=== PATIENT | male | born 1990 | race American Indian/Alaskan Native ===

== ENCOUNTER 2021-06-14 06:09 | Emergency (ER) | payer MEDICARE ==
[2021-06-14 07:33] VITALS: BP 114/48
[2021-06-14 10:43] LABS: Alanine Aminotransferase 14 units/L (7-56); Albumin 4.1 g/dL (3.9-5); BUN/Creatinine Ratio 10; Basophils # (Auto) 0.1 K/mm3 (0.0-0.1); Basophils % (Auto) 0.7 % (0.0-1.8); Blood Urea Nitrogen 12 mg/dL (9-20); Calcium 9.2 mg/dL (8.4-10.2); Eosinophils % (Auto) 0.5 % (0.0-4.3); Hematocrit 39.8 % (35.5-45.6); Hemoglobin 13.6 gm/dl (11.8-15.2); Hemolysis Index 8; Lymphocytes % (Auto) 11.4 % (13.4-35.0); Mean Corpuscular HGB Conc 34 % (32-34); Mean Corpuscular Volume 91 fl (84-94); Monocytes # (Auto) 0.6 K/mm3 (0.0-0.8); Monocytes % (Auto) 6.4 % (0.0-7.3); Platelet Count 150 K/mm3 (140-440); Red Cell Distribution Width 13.1 % (13.2-15.2)
--- NOTE | 2021-06-14 11:13 | XRay Report ---
CHEST PA AND LATERAL VIEWS INDICATION: Syncope. COMPARISON: None. FINDINGS: Support devices: None. Heart: Within normal limits. Lungs/Pleura: No acute pulmonary or pleural findings. IMPRESSION: 1. No acute findings. Signer Name: Vignesh Campo MD Signed: 06/14/2021 11:09 AM Workstation Name: [id number]
--- NOTE | 2021-06-14 12:02 | Emergency Department Report ---
ED Syncope HPI - General Chief Complaint: Syncope Stated Complaint: SYNCOPE,WEAKNESS,FLANK PAIN Time Seen by Provider: 06/14/21 11:56 Source: patient Exam Limitations: no limitations - History of Present Illness Initial Comments: Chief complaint: I passed out HPI: This is a healthy 31-year-old male with history of tobacco use tobacco dependence who presents with syncopal episode while walking at work this morning. For the past 2 weeks patient's had symptoms of runny nose lower back pain lightheadedness chills sore throat headache. No known Covid exposure. He denies cough or shortness of breath. Denies chest pain. Denies loss of taste or smell. While walking to work he felt lightheaded. He had mild lower back pain. He had a unwitnessed syncopal episode while walking to work from his home. He started a new job in [employer] 3 weeks ago. He currently is asympto matic. No family history of cardiac disease. He denies recreational drug use. Timing/Prior Episodes: single episode today Precipitating Factors: Positive: lightheadedness, other (Bilateral lower back pain) Context: other (Walking) Loss of Consciousness: brief (seconds) Current Symptoms: back to normal - Related Data Allergies/Adverse Reactions: Allergies No Known Allergies Allergy (Unverified 06/14/21 07:28) ED Review of Systems ROS: Stated complaint: SYNCOPE,WEAKNESS,FLANK PAIN Other details as noted in HPI Comment: All other systems reviewed and negative Constitutional: chills. denies: fever, malaise ENT: congestion (Nasal congestion). denies: throat pain Respiratory: denies: cough, shortness of breath Cardiovascular: denies: chest pain, palpitations Gastrointestinal: denies: abdominal pain Neurological: denies: headache Psychiatric: denies: depression, auditory hallucinations ED Past Medical Hx - Past Medical History Previous Medical History?: No - Surgical History Past Surgical History?: No ED Physical Exam - General Limitations: No Limitations General appearance: alert, in no apparent distress, other (Appears well, brisk ambulation, appears healthy) - Head Head exam: Present: atraumatic, normocephalic - Eye Eye exam: Present: normal appearance - ENT ENT exam: Present: mucous membranes moist - Neck Neck exam: Present: normal inspection, full ROM - Respiratory Respiratory exam: Present: normal lung sounds bilaterally. Absent: respiratory distress, wheezes, rales, rhonchi - Cardiovascular Cardiovascular Exam: Present: regular rate, normal rhythm, normal heart sounds. Absent: systolic murmur, diastolic murmur, rubs, gallop - GI/Abdominal GI/Abdominal exam: Present: soft, normal bowel sounds. Absent: distended, tenderness, guarding, rebound - Rectal Rectal exam: Present: deferred - Extremities Exam Extremities exam: Present: normal inspection - Neurological Exam Neurological exam: Present: alert, oriented X3 - Psychiatric Psychiatric exam: Present: normal affect, normal mood - Skin Skin exam: Present: warm, dry, intact, normal color. Absent: rash ED Course Vital Signs 06/14/21 07:32 Temperature 99.0 F Pulse Rate 91 H Respiratory 18 Rate Blood Pressure 114/48 O2 Sat by Pulse 95 Oximetry ED Medical Decision Making - Lab Data Result diagrams: 06/14/21 09:54 06/14/21 09:54 - EKG Data -: EKG Interpreted by Ma EKG shows normal: sinus rhythm, axis, intervals, QRS complexes, ST-T waves Rate: normal - Radiology Data Radiology results: report reviewed [address] [address] XRay Report Signed Patient: CORRINE BERMAN MR#: [id number] 2009 : 1990 Acct:[id number] Age/Sex: 31 / M ADM Date: 06/14/21 Loc: ED Attending Dr: Ordering Physician: KENDALL JERNIGAN Date of Service: 06/14/21 Procedure(s): XR chest routine 2V Accession Number(s): [id number] cc: KENDALL JERNIGAN Fluoro Time In Minutes: CHEST PA AND LATERAL VIEWS INDICATION: Syncope. COMPARISON: None. FINDINGS: Support devices: None. Heart: Within normal limits. Lungs/Pleura: No acute pulmonary or pleural findings. IMPRESSION: 1. No acute findings. Signer Name: Vignesh Campo MD Signed: 06/14/2021 11:09 AM Workstation Name: [id number] Transcribed By: SW Dictated By: Vignesh Campo MD Electronically Authenticated By: Vignesh Campo MD Signed Date/Time: 06/14/21 110 DD/ 08 TD/TT: - Medical Decision Making 1. Vasovagal syncope no indication of arrhythmia pulmonary embolism structural heart disease. EKG chest radiograph CBC chemistry troponin all within normal limits. PERC negative for PE 2. Viral syndrome: Strongly recommended COVID-19 testing and vaccination. 3. Tobacco dependence: Strongly encouraged smoking cessation Critical care attestation.: If time is entered above; I have spent that time in minutes in the direct care of this critically ill patient, excluding procedure time. ED Disposition Clinical Impression: Vasovagal syncope, Viral syndrome Disposition: HOME / SELF CARE / HOMELESS Is pt being admited?: No Does the pt Need Aspirin: No Condition: Stable Instructions: Syncope (ED), Syncope, Viral Illness, Adult Referrals: PEYTON ASTORGA MD [Staff Physician] - 3-5 Days Forms: Work/School Release Form(ED)
--- NOTE | 2021-06-15 17:40 | Electrocardiograph Report ---
[facility] Test Date: 2021-06-14 Test Time: 07:41:42 Pat Name: CORRINE BERMAN Department: Room: Gender: M Transportation Maintenance Operator: NIKOLAS : 1990 Requested By: KENDALL JERNIGAN Order Number: [id number] Reading MD: Margi Garcia Measurements Intervals [place] Rate: 80 P: 51 MI: 149 QRS: 55 QRSD: 86 T: 8 QT: 339 QTc: 390 Interpretive Statements Sinus rhythm No previous ECG available for comparison Electronically Signed On 06-15-2021 17:39:38 EDT by Margi Garcia
== END 2021-06-14 12:31 | disposition home or self-care (01) ==
LOC: ED 06:09
DX: R55 Syncope and collapse (principal); B34.9 Viral infection, unspecified
CPT/HCPCS: 36415; 71046; 80053; 83735; 84484; 85025; 93005; 99284